=== PATIENT | male | born 1975 | race Two or more races ===

== ENCOUNTER 2023-01-28 16:02 | Emergency (ER) | payer OTHER ==
[~2023-01-28] VITALS: Ht 172.7 cm; Wt 117.9 kg
[2023-01-28] MEDS ORDERED: TOPROL XL25 M1 PO (16:30)
[2023-01-28] MEDS ORDERED: ZESTRIL20 MG PO (16:30)
== END 2023-01-28 19:38 | disposition home or self-care (01) ==
LOC: ER 16:02
DX: R07.9 Chest pain, unspecified (principal); I10 Essential (primary) hypertension

== ENCOUNTER 2023-01-30 09:43 | Emergency (ER) | payer OTHER ==
[~2023-01-30] VITALS: Ht 172.7 cm; Wt 117.9 kg
[~2023-01-30 09:43] MED LIST: TOPROL XL25 M1 PO; ZESTRIL20 MG PO
== END 2023-01-30 10:53 | disposition home or self-care (01) ==
LOC: ER 09:43
DX: M94.0 Chondrocostal junction syndrome [Tietze] (principal)

== ENCOUNTER 2023-02-08 01:26 | Emergency (ER) | payer OTHER ==
[~2023-02-08] VITALS: Ht 172.7 cm; Wt 117.9 kg
[2023-02-08] MEDS ORDERED: ECOTRIN81 MG (01:35)
[2023-02-08] MEDS ORDERED: IBU800 MG (01:35)
== END 2023-02-08 03:59 | disposition home or self-care (01) ==
LOC: ER 01:26
DX: M94.0 Chondrocostal junction syndrome [Tietze] (principal)

== ENCOUNTER 2023-03-14 11:19 | Emergency (ER) | payer OTHER ==
[~2023-03-14] VITALS: Ht 172.7 cm; Wt 120.2 kg
[~2023-03-14 11:19] MED LIST changes: +ECOTRIN81 MG; +IBU800 MG
== END 2023-03-14 14:40 | disposition home or self-care (01) ==
LOC: ER 11:19
DX: R07.89 Other chest pain (principal); I10 Essential (primary) hypertension

== ENCOUNTER 2023-04-19 16:05 | Emergency (ER) | payer OTHER ==
[~2023-04-19] VITALS: Ht 172.7 cm; Wt 127.0 kg
== END 2023-04-19 16:59 | disposition home or self-care (01) ==
LOC: ER 16:05
DX: M94.0 Chondrocostal junction syndrome [Tietze] (principal)

== ENCOUNTER 2025-01-26 06:02 | Emergency (ER) | payer OTHER ==
[~2025-01-26] VITALS: Ht 172.7 cm; Wt 104.3 kg
[2025-01-26] MEDS ORDERED: GRALISE600 MG PO (06:27)
[2025-01-26] MEDS ORDERED: HORIZANT300 MG PO (06:27)
[2025-01-26] MEDS ORDERED: KETOROLAC TROMETHAMINE 30 MG VIAL ONE (07:15)
[2025-01-26] MEDS ORDERED: KETOROLAC TROMETHAMINE 30 MG VIAL IV STA (07:16)
[2025-01-26 07:36] LABS: HEMATOCRIT 42.5 % (39.0-48.0); HEMOGLOBIN 14.3 g/dL (13-16.00); MEAN CELL VOLUME 95.6 fL (80.0-100.00); MEAN CORPUSCULAR HEMOGLOBIN 32.2 pg (27.00-32.0); MEAN CORPUSCULAR HGB CONC 33.7 g/dl (32.0-36.0); PLATELET COUNT 227 K/uL (150-450); RED BLOOD COUNT 4.45 M/uL (4.00-6.00)
[2025-01-26 07:54] LABS: INR < 0.93; PARTIAL THROMBOPLASTIN TIME 28.2 SECONDS (22.0-34.0); PROTHROMBIN TIME 9.9 SECONDS (9.0-11.5)
[2025-01-26 08:10] LABS: PH,URINE 5.5 (5.0-8.0); URINE APPEARANCE Clear; URINE BILIRRUBIN Negative (NEGATIVE); URINE BLOOD Negative; URINE COLOR Yellow; URINE GLUCOSE Negative (NEGATIVE); URINE KETONE Negative (NEGATIVE); URINE LEUKOCYTE Negative; URINE NITRATE Negative; URINE PROTEIN Negative (NEGATIVE); URINE UROBILINOGEN 0.2 E.U./dl
[2025-01-26 08:14] LABS: URINE BACTERIA 4.8 uL (0.0-1933); URINE RBC 2.7 uL (0.0-20.8)
[2025-01-26 08:19] LABS: ALBUMIN 3.7 gm/dL (3.4-5.0); BILIRUBIN TOTAL 0.19 mg/dL (0.3-1.2); CALCIUM 8.9 mg/dL (8.5-10.1); CREATININE SERUM 0.61 mg/dL (0.70-1.30); GFR 141.69; GLOBULINA 3.5 G/DL (2.4-3.5); POTASSIUM 4.47 mEq/L (3.5-5.1); TOTAL PROTEIN 7.2 gm/dL (6.4-8.2)
[2025-01-26 08:43] LABS: URINE CAST 0.14 uL (0.0-1.40); URINE EPITHELIAL CELLS 0.1 uL (0.0-38.8); URINE WBC 1.4 uL (0.0-23.2)
[2025-01-26] MEDS ORDERED: DICLOFENAC SODI75 MG PO (09:18)
== END 2025-01-26 09:28 | disposition home or self-care (01) ==
LOC: ER 06:05
PROVIDERS: General Practice
DX: R07.9 Chest pain, unspecified (principal); M94.0 Chondrocostal junction syndrome [Tietze]

== ENCOUNTER 2025-08-21 10:02 | Emergency (ER) | payer OTHER ==
[~2025-08-21] VITALS: Ht 172.7 cm; Wt 104.3 kg
[~2025-08-21 10:02] MED LIST changes: +DICLOFENAC SODI75 MG PO; +GRALISE600 MG PO; +HORIZANT300 MG PO
[2025-08-21] MEDS ORDERED: HORIZANT300 MG (10:16)
[2025-08-21] MEDS ORDERED: KETOROLAC TROMETHAMINE 30 MG VIAL ONE (10:38)
[2025-08-21] MEDS ORDERED: ORPHENADRINE CITRATE 30 MG/ML AMPUL ONE (10:38)
[2025-08-21] MEDS ORDERED: KETOROLAC TROMETHAMINE 30 MG VIAL IM ONE (10:45)
[2025-08-21] MEDS ORDERED: ORPHENADRINE CITRATE 30 MG/ML AMPUL IM ONE (10:45)
== END 2025-08-21 11:26 | disposition home or self-care (01) ==
LOC: ER 10:02
DX: S23.41XA Sprain of ribs, initial encounter (principal); X58.XXXA Exposure to other specified factors, initial encounter; Y93.89 Activity, other specified; Y92.89 Other specified places as the place of occurrence of the external cause; Y99.9 Unspecified external cause status; I10 Essential (primary) hypertension

== ENCOUNTER 2025-11-26 10:23 | Emergency (ER) | payer OTHER ==
[~2025-11-26] VITALS: Ht 172.7 cm; Wt 113.4 kg
[~2025-11-26 10:23] MED LIST changes: +HORIZANT300 MG
[2025-11-26 12:26] LABS: BASO % 0.4 % (0.1-1.2); EOS # 0.09 (0.04-0.54); EOS % 1.6 % (0.7-7.0); LYMPH # 1.26 (1.18-3.74); LYMPH % 22.2 % (19.3-53.1); MEAN PLATELET VOLUME 10.10 fl (9.4-12.4); MONO # 0.36 (0.24-0.82); MONO % 6.3 % (4.7-12.5); NEUT # 3.90 (1.56-6.13); NEUT % 68.6 % (34.0-71.1); RED CELL DISTRIBUTION WIDTH 12.6 % (11.6-14.4)
[2025-11-26 12:30] LABS: URINE APPEARANCE Clear; URINE BILIRRUBIN Negative (NEGATIVE); URINE BLOOD Negative; URINE COLOR Yellow; URINE GLUCOSE Negative (NEGATIVE); URINE KETONE Negative (NEGATIVE); URINE LEUKOCYTE Negative; URINE NITRATE Negative; URINE PROTEIN Negative (NEGATIVE); URINE UROBILINOGEN 0.2 E.U./dl
[2025-11-26 12:31] LABS: URINE BACTERIA 10.2 uL (0.0-1933); URINE RBC 3.1 uL (0.0-20.8)
[2025-11-26 12:33] LABS: URINE CAST 0.00 uL (0.0-1.40); URINE EPITHELIAL CELLS 0.0 uL (0.0-38.8); URINE WBC 0.7 uL (0.0-23.2)
[2025-11-26 12:34] LABS: ERYTHROCYTE SEDIMENTATION RATE 7 mm/hr (0-15)
[2025-11-26 12:50] LABS: INR 0.94
[2025-11-26 12:51] LABS: COVID-19 AG NEGATIVE (NEGATIVE)
[2025-11-26 12:55] LABS: ALT/SGPT 56 U/L (12-78); AST/SGOT 21 U/L (15-37); BILIRUBIN TOTAL 0.59 mg/dL (0.3-1.2); BUN CREA RATIO 27 (7.0-25.0); CREATININE SERUM 0.59 mg/dL (0.70-1.30); GFR 146.62; GLOBULINA 3.6 G/DL (2.4-3.5); GLUCOSE FASTING 111 mg/dL (65-100); OSMOLALITY SERUM 279 MOSM/KG (275-295)
[2025-11-26] MEDS ORDERED: DEXAMETHASONE SODIUM PHOSPHATE 4 MG/ML VIAL IM STA (13:43)
[2025-11-26] MEDS ORDERED: ORPHENADRINE CITRATE 30 MG/ML AMPUL IM STA (13:43)
[2025-11-26] MEDS ORDERED: 0.9 % SODIUM CHLORIDE 1,000 ML IV STA (13:43)
[2025-11-26] MEDS ORDERED: KETOROLAC TROMETHAMINE 30 MG VIAL IM STA (13:44)
[2025-11-26] MEDS ORDERED: IBU600 MG PO (14:48)
== END 2025-11-26 15:51 | disposition home or self-care (01) ==
LOC: ER 10:24
PROVIDERS: Physician Assistant Medical
DX: M94.0 Chondrocostal junction syndrome [Tietze] (principal); R07.89 Other chest pain; R05.8 Other specified cough; Z20.822 Contact with and (suspected) exposure to COVID-19